=== PATIENT | male | born 1980 | race Caucasian/White ===

== ENCOUNTER → 2018-06-26 | Outpatient (CLI) | payer OTHER ==
[~2018-06-26] MED LIST: ALEVE220 MG PO; FISH OIL 1,0001 EAC5 PO; GLUCOSAMINE &1 EACH PO; LORTAB 5 MG/5001 TA1 PO
== END ==
LOC: CAT 10:02
DX: Z13.6 Encounter for screening for cardiovascular disorders (principal); E78.00 Pure hypercholesterolemia, unspecified